=== PATIENT | male | born 1985 | race Caucasian/White ===

== ENCOUNTER 2017-04-03 11:40 | Day surgery (SDC) | payer MEDICAID, OTHER ==
[2017-04-03] VITALS (9 sets, daily range): BP systolic 114–145; BP diastolic 76–98; PULSE 76–100; RESP 17–28; Ht 167.6 cm; Wt 64.8 kg
[~2017-04-03] VITALS: Ht 167.6 cm; Wt 64.8 kg
[2017-04-03 13:03] LABS: BASOPHIL # 0.1 10^3/ul (0.0-0.1); BASOPHILS % 0.9 % (0.0-2.0); EOSINOPHILS # 0.1 10^3/ul (0.0-0.5); EOSINOPHILS % 1.3 % (0.0-7.0); HEMATOCRIT 44.1 % (42.0-52.0); HEMOGLOBIN 14.8 g/dl (14.0-18.0); LYMPHOCYTES # 1.8 10^3/ul (0.8-2.9); LYMPHOCYTES % 32.4 % (15.0-51.0); MEAN CORPUSCULAR HEMOGLOBIN 30.3 pg (29.0-33.0); MEAN CORPUSCULAR HGB CONC 33.6 g/dl (32.0-37.0); MEAN CORPUSCULAR VOLUME 90.4 fl (82.0-101.0); MEAN PLATELET VOLUME 9.6 fl (7.4-10.4); MONOCYTE # 0.5 10^3/ul (0.3-0.9); MONOCYTES % 9.5 % (0.0-11.0); NEUTROPHILS % 55.7 % (39.0-77.0); PLATELET COUNT 268 10^3/UL (140-415); RED BLOOD COUNT 4.88 10^6/ul (4.70-6.10); RED CELL DISTRIBUTION WIDTH 12.4 % (11.5-14.5); WHITE BLOOD COUNT 5.5 10^3/ul (4.8-10.8)
[2017-04-03] MEDS ORDERED: LEVE-5 PO (13:12)
--- NOTE | 2017-04-03 14:23 | HPN ---
Date/Time of Note Date/Time of Note DATE: 04/03/17 TIME: 14:23 Interval H&P Admission Note Pt. seen H&P reviewed: No system changes FELTON BANG MD Apr 03, 2017 14:23
[2017-04-03] MEDS ORDERED: BUPIVACAINE 0.5% (SDV) 30 ML INJ ONE (14:39)
[2017-04-03] MEDS ORDERED: POLYMYXIN/BACITRACIN 1L IRRIG ONE (14:39)
[2017-04-03] MEDS ORDERED: FENTAnyl 50 MCG/ML VIAL IV PRN ×2 (15:30)
[2017-04-03] MEDS ORDERED: ONDANSETRON 4 MG INJ IV PRN (15:30)
[2017-04-03] MEDS ORDERED: METOCLOPRAMIDE 10 MG INJ IV PRN (15:30)
[2017-04-03] MEDS ORDERED: HYDROmorphONE (0.2 MG/ML) 10ML SYG IV PRN ×2 (15:30)
[2017-04-03] MEDS ORDERED: DIPHENHYDRAMINE 50 MG INJ IV PRN (15:30)
[2017-04-03] MEDS ORDERED: MEPERIDINE 25 MG INJ IV PRN (15:30)
[2017-04-03] MEDS ORDERED: FENTAnyl 50 MCG/ML VIAL ONE (15:34)
[2017-04-03] MEDS ORDERED: PROPOFOL 40 ML ONE (15:39)
[2017-04-03] MEDS ORDERED: CEFAZOLIN 1 GM INJ ONE (15:39)
[2017-04-03] MEDS ORDERED: LIDOCAINE 2% (SDV) 5 ML INJ ONE (15:39)
[2017-04-03] MEDS ORDERED: ROCURONIUM 50 MG INJ ONE (15:39)
[2017-04-03] MEDS ORDERED: SUGAMMADEX SODIUM 200 MG/2 ML VIAL IV ONE (15:39)
[2017-04-03] MEDS ORDERED: SUCCINYLCHOLINE CHLORIDE 100 MG/5 ML SYG IV ONE (15:39)
--- NOTE | 2017-04-03 16:42 | OPR ---
Date/Time of Note Date/Time of Note DATE: 04/03/17 TIME: 16:41 Operative Report Preoperative Diagnosis right wrist flexion contracture , cerebral palsy Postoperative Diagnosis same Operation/Procedure Performed fcr transfer to [facility] Surgeon: FELTON BANG MD library assistant: ABELARDO MALAVE Anesthesia Type: general Estimated Blood Loss: 0 - 10 ml's Grafts/Implants: none Complications: no FELTON BANG MD Apr 03, 2017 16:42
--- NOTE | 2017-04-04 07:55 | OPR ---
DATE OF OPERATION: 04/03/2017 PREOPERATIVE DIAGNOSIS: Cerebral palsy, left wrist flexion contracture, left wrist tight flexor carpi ulnaris. POSTOPERATIVE DIAGNOSIS: Cerebral palsy, left wrist flexion contracture, left wrist tight flexor carpi ulnaris. OPERATION PERFORMED: Flexor carpi ulnaris release, flexor carpi ulnaris transfer to the extensor carpi radialis longus and brevis, all to see if we could improve the severe flexion contracture, bring the wrist to neutral and see if we could get some better function. The mother asked preoperatively about the elbow which is tight and we are not going to do anything about that at this time, and the fingers, which would wrist extension may be a little tight, and we are not going to do anything about that at this time. We will see if we can improve his function by bringing his wrist in neutral by tendon transfer. SURGICAL PAUSE: I examined the patient in the preop holding area. I trevor in the surgical incision, explained what I was going to attempt and what we hoped to accomplish and showed the drawing and incision to the patient, mother present at the time. Informed consent: At the time we scheduled the operative procedure we talked about the risks and benefits of surgery, talked about operative mortality, wound infection, nerve injury, good result, bad result, potential _ complications. I think two things will happen, we will make him better or he will be the same. I would be surprised if we could make him worse with this procedure. OPERATIVE PROCEDURE: The patient taken to surgery, anesthetized as above. Sterile prep and drape was performed. At the wrist the FCA was identified, a mosquito placed around it. The ulnar nerve identified and protected. The FCU divided and then through a series of incisions brought it out the forearm at the middle third. The wounds were closed with interrupted Vicryl rapid sutures. I exposed the extensor carpi radialis longus in the distal forearm, put a mosquito over it and tested it. I brought the wrist up to neutral and fixed it with a temporary longitudinal _k wire and buried the wire below the skin for later removal in 4-6 weeks. The extensor carpi ulnaris was brought through the subcutaneous tissue from the forearm to the dorsum of the hand and the tendon lead - tendon weaved_ through the extensor carpi radialis longus. The wounds were closed with Vicryl deep. The wrist was splinted with a long large K-wire which was buried below the skin. A _fiberglass splint was applied. We will keep the patient immobilized in this wrist extension position 6-8 weeks. The K-wire left will come out at a later date. The operative procedure was around an hour. Discharge medication: Hydrocodone with acetaminophen, Keflex. Followup will be in my office in a week. We will change the dressing, place the patient in a cast at that time with the wrist in neutral with slight dorsiflexion as he positions. Dictated By: Shilo Whitman MD /keira/jason /Document#: [id number]
== END 2017-04-03 18:10 | disposition home or self-care (01) ==
LOC: SDS 11:40
PROVIDERS: ATTEND Orthopaedic Surgery Hand Surgery
DX: M24.532 Contracture, left wrist (principal); G80.9 Cerebral palsy, unspecified
CPT/HCPCS: 25290; 85025; C1713; J0690; J1170; J3010; Z7512; Z7610; J7999